=== PATIENT | female | born 1990 | race Two or more races ===

== ENCOUNTER 2021-02-04 20:33 | Emergency (ER) | payer OTHER ==
[~2021-02-04] VITALS: Ht 152.4 cm; Wt 59.9 kg
[~2021-02-04 20:33] MED LIST: INTESTINEX1 CA1 PO; PROTONIX40 MG PO
[2021-02-04] MEDS ORDERED: NORFLEX100MG PO (21:45)
[2021-02-04] MEDS ORDERED: DICLOFENAC SODI75 MG PO (21:45)
== END 2021-02-04 21:53 | disposition home or self-care (01) ==
LOC: ER 20:33
DX: S10.83XA Contusion of other specified part of neck, initial encounter (principal); S30.0XXA Contusion of lower back and pelvis, initial encounter; S20.223A Contusion of bilateral back wall of thorax, initial encounter; M62.830 Muscle spasm of back; V49.88XA Car occupant (driver) (passenger) injured in other specified transport accidents, initial encounter; Y93.89 Activity, other specified; Y92.89 Other specified places as the place of occurrence of the external cause; Y99.8 Other external cause status

== ENCOUNTER 2025-02-14 11:24 | Emergency (ER) | payer OTHER ==
[~2025-02-14] VITALS: Ht 152.4 cm; Wt 52.2 kg
[~2025-02-14 11:24] MED LIST changes: +DICLOFENAC SODI75 MG PO; +NORFLEX100MG PO
[2025-02-14] MEDS ORDERED: 0.9 % SODIUM CHLORIDE 1,000 ML IV STA (12:44)
[2025-02-14] MEDS ORDERED: ONDANSETRON HCL 2 MG/ML VIAL IV STA (12:45)
[2025-02-14] MEDS ORDERED: ONDANSETRON HCL 2 MG/ML VIAL ONE ×2 (12:56→12:57)
[2025-02-14 13:31] LABS: HEMATOCRIT 36.6 % (36.0-45.00); HEMOGLOBIN 12.1 g/dL (12.0-15.00); MEAN CELL VOLUME 92.7 fL (80.00-100.00); MEAN CORPUSCULAR HEMOGLOBIN 30.6 pg (27.00-32.0); PLATELET COUNT 365 K/uL (150-450); RED BLOOD COUNT 3.95 M/uL (4.00-6.00); RED CELL DISTRIBUTION WIDTH 14.7 % (11.5-14.5)
[2025-02-14 14:02] LABS: CALCIUM 8.9 mg/dL (8.5-10.1); CREATININE SERUM 0.58 mg/dL (0.55-1.02); GFR 118.3; POTASSIUM 3.62 mEq/L (3.5-5.1)
[2025-02-14 14:22] LABS: URINE APPEARANCE Clear; URINE BILIRRUBIN Negative (NEGATIVE); URINE BLOOD Negative; URINE COLOR Yellow; URINE GLUCOSE Negative (NEGATIVE); URINE KETONE 15 (NEGATIVE); URINE LEUKOCYTE Small; URINE NITRATE Negative; URINE PROTEIN 30 (NEGATIVE); URINE UROBILINOGEN 0.2 E.U./dl
[2025-02-14 14:23] LABS: URINE BACTERIA 583.7 uL (0.0-1933); URINE RBC 51.9 uL (0.0-20.8); URINE WBC 24.5 uL (0.0-23.2)
== END 2025-02-14 15:58 | disposition home or self-care (01) ==
LOC: ER 11:25
PROVIDERS: Emergency Medicine
DX: K52.9 Noninfective gastroenteritis and colitis, unspecified (principal)